=== PATIENT | female | born 2000 | race Two or more races ===

== ENCOUNTER 2024-12-17 13:18 | Emergency (ER) | payer MEDICAID, SELFPAY ==
[2024-12-17 13:19] VITALS: BMI 33.2
[2024-12-17 13:28] VITALS: BP 120/81; PULSE 87; RESP 16; TEMP 36.8; O2SAT 97
--- NOTE | 2024-12-17 13:44 | EDNOTE_ITS ---
ED Skin Abcess FB-RME/HPI General Chief complaint: Skin/Abscess/Foreign Body Stated complaint: ABSCESS TO LOWER ABDOMEN Time Seen by Provider: 12/17/24 13:36 Arrival date/time: 12/17/24 13:18 RME / HPI RME / HPI narrative: 24 year old female presents to the ED with a complaint of a spider bite to her right lower abdomen. It is red and painful. It has been presents for a few days and getting worse. She denies fever or chills, nausea or vomiting. Related Data Home Medications ?Medication ?Instructions ?Recorded ?Confirmed levothyroxine 137 mcg tablet 137 mcg PO QDAY #0 tabs 0 09/18/13 12/04/18 Previous Rx's ?Medication ?Instructions ?Recorded ondansetron 4 mg disintegrating 4 mg PO Q8H PRN nausea and 12/04/18 tablet vomiting #14 tabs clindamycin HCl 300 mg capsule 300 mg PO Q6H abscess w ith 12/17/24 (Cleocin HCl) Cellulitis #40 caps meloxicam 15 mg tablet 15 mg PO QDAY #10 tabs 12/17 Allergies Allergy/AdvReac Type Severity Reaction Status Date / Time No Known Allergies Allergy Verified 12/17/24 13:21 Past Medical History Past Medical History CARDIAC: Negative Congestive Heart Failure RESPIRATORY: Negative Chronic Obstructive Pulmonary Disease (COPD) GENITOURINARY: Negative Renal Disease ENDOCRINE: Negative Diabetes Mellitus Type 1 or Diabetes Mellitus Type 2 Social History SMOKING STATUS: Current some day smoker ED Exam Narrative Physical exam: Alert and oriented 24 year old female, mild acute pain distress. Small area of erythema, warmth, and tenderness to right lower abdomen with induration and without fluctuance. Course Course Course Narrative: 24 year old female presents to the ED with a complaint of a spider bite to her right lower abdomen. It is red and painful. It has been presents for a few days and getting worse. She denies fever or chills, nausea or vomiting. Alert and oriented 24 year old female, mild acute pain distress. Small area of erythema, warmth, and tenderness to right lower abdomen with induration and without fluctuance. Patient was given Toradol 30 mg IM. She will be discharged home with clindamycin and meloxicam. The abscess is not ready for incision and drainage at this time due to no fluctuance. She was advised to return to the emergency department for any new or worsening symptoms. Quality Measures none Orders Category Date Time Status Clindamycin [Cleocin] Med 12/17/24 13:53 Discontinued 600 mg PO X1 ONE Ketorolac Inj [Toradol Inj] Med 12/17/24 13:53 Discontinued 30 mg IM X1 ONE Vital Signs Vital signs: Vital Signs Temperature 98.3 F 12/17/24 13:28 Pulse Rate 87 12/17/24 13:28 Respiratory Rate 16 12/17/24 13:28 Blood Pressure 120/81 12/17/24 13:28 Pulse Oximetry (%) 97 12/17/24 13:28 Oxygen Delivery Method Room Air 12/17/24 13:28 Skin / Abscess / Foreign Body MDM Narrative MDM Narrative:: 24 year old female presents to the ED with a complaint of a spider bite to her right lower abdomen. It is red and painful. It has been presents for a few days and getting worse. She denies fever or chills, nausea or vomiting. Alert and oriented 24 year old female, mild acute pain distress. Small area of erythema, warmth, and tenderness to right lower abdomen with induration and without fluctuance. Patient was given Toradol 30 mg IM. She will be discharged home with clindamycin and meloxicam. The abscess is not ready for incision and drainage at this time due to no fluctuance. She was advised to use warm, moist compresses several times daily. She was advised to return to the emergency department for any new or worsening symptoms. Patient data External records reviewed:: None Clinical information provided by:: patient Social determinants that could affect healthcare access:: none Patient has the following chronic illnesses:: None How is presenting disease/condition affected by chronic disease/condition?: no chronic disease Evaluation data The following diagnostics were reviewed and interpreted by me:: other (specify) (N/A) Lab and/or radiology exams considered but not ordered:: N/A Interpretation Summary: N/A Medications / Prescriptions Medications or Prescriptions considered but not ordered:: N/A Medication administrations:: Medication Administration History Discontinued Medications Clindamycin HCl (Clindamycin 150 Mg Capsule) 600 mg PO X1 ONE Stop: 12/17/24 13:54 Ketorolac Tromethamine (Ketorolac Inj 60 Mg/2 Ml Vial) 30 mg IM X1 ONE Stop: 12/17/24 13:54 Toradol 30 mg IM Consultations Consultation(s) initiated? (list below): No Diagnosis Skin/Abscess Differential Diagnosis: abscess of skin or subcutaneous tissue, cellulitis and insect bites Most likely diagnosis given after review of the tests above:: Abscess of skin with cellulitis. Admission Indicated Admission indicated?: not indicated Admission Request Was there a request for admission?: No Disposition Plan Disposition Plan: Discharge Discharge Attestation Discharge Attestation: The patient and all family members were given an opportunity to ask questions and understood the discharge instructions. Discharge instructions specifically effects, indications for sooner follow up or return to the emergency department, and the expected course of current diagnosis. Patient condition: Stable Discharge Plan Plan Patient Disposition: HOME (Self Care) Discharge Disposition comment: Stable Prescriptions/Referrals Prescriptions/Med Rec: New clindamycin HCl [Cleocin HCl] 300 mg capsule 300 mg PO Q6H Qty: 40 0RF meloxicam 15 mg tablet 15 mg PO QDAY Qty: 10 0RF No Action levothyroxine 137 mcg Tablet 137 mcg PO QDAY Qty: 0 ondansetron 4 mg tablet,disintegrating 4 mg PO Q8H PRN (Reason: nausea and vomiting) Qty: 14 0RF Problem List Clinical Impression: Abscess of skin or subcutaneous tissue, Cellulitis Patient/Caregiver Discharge Instructions Education Materials: ED Abscess Antibiotic ..., ED Cellulitis Additional Instructions: Take the antibiotics as prescribed and complete the course even though you may be feeling better. Apply warm, moist compresses to the area several times daily. Follow-up with your primary care physician in 24 to 48 hours. Return to the ED for any new or worsening symptoms. Print Language: Belarusian Stand Alone Forms: Nanette Award Info., Patient Portal Info Letter PA/BRITTANI Supervising Physician ESAU/BRITTANI Supervising Physician: Dr Zapata
[2024-12-17] MEDS: CLINDAMYCIN 150 MG CAPSULE 600 MG PO (14:17)
[2024-12-17] MEDS: KETOROLAC INJ 60 MG/2 ML VIAL 30 MG IM (14:17)
== END 2024-12-17 14:31 | disposition home or self-care (01) ==
PROVIDERS: Emergency Provider Emergency Medicine
DX: L02.211 Cutaneous abscess of abdominal wall (principal); L03.311 Cellulitis of abdominal wall
CPT/HCPCS: 96372; 99283; J1885; A9270

== ENCOUNTER 2025-03-05 06:36 | Emergency (ER) | payer MEDICAID, SELFPAY ==
[2025-03-05 06:37] VITALS: BP 121/74; PULSE 104; RESP 18; TEMP 37.1; O2SAT 96; BMI 32.2
[2025-03-05] MEDS: CLINDAMYCIN PHOS INJ 150 MG/ML VIAL 6 ML 600 MG IM (06:58)
--- NOTE | 2025-03-05 06:58 | EDNOTE_ITS ---
<Statement entered by Johanna Cavazos MD - 03/19/25 06:29> As co-signing physician, I was present and available for consult prn. I concur with the plan and care as documented by the midlevel provider. ED Skin Abcess FB-RME/HPI General Chief complaint: Skin/Abscess/Foreign Body Stated complaint: SPIDER BITE L INNER THIGH Time Seen by Provider: 03/05/25 06:38 Source: patient Arrival date/time: 03/05/25 06:36 24-year-old female with no known medical history presents to the emergency room with a chief complaint of a possible spider bite to the left inner thigh x 2 days Mode of arrival: ambulatory Limitations: no limitations Related Data Home Medications ?Medication ?Instructions ?Recorded ?Confirmed levothyroxine 137 mcg tablet 137 mcg PO QDAY #0 tabs 0 09/18/13 12/04/18 Previous Rx's ?Medication ?Instructions ?Recorded ondansetron 4 mg disintegrating 4 mg PO Q8H PRN nausea and 12/04/18 tablet vomiting #14 tabs clindamycin HCl 300 mg capsule 300 mg PO Q6H abscess w ith 12/17/24 (Cleocin HCl) Cellulitis #40 caps meloxicam 15 mg tablet 15 mg PO QDAY #10 tabs 12/17 amoxicillin 875 mg-potassium 1 tab PO BID 7 days #14 t abs 03/05/25 clavulanate 125 mg tablet Allergies Allergy/AdvReac Type Severity Reaction Status Date / Time No Known Allergies Allergy Verified 03/05/25 06:42 Review of Systems Review of Systems Systems Reviewed: All systems reviewed, normal except as documented Constitutional Constitutional: Reports system reviewed and no additional complaints, except as documented, Denies fatigue, Denies fever(s), Denies headache(s) and Denies weakness Eyes Eyes: Reports system reviewed and no additional complaints, except as documented, Denies blurry vision and Denies change in vision ENT Ears, Nose, Mouth, and Throat: Reports system reviewed and no additional complaints, except as documented, Denies otalgia, Denies headache(s), Denies nasal congestion, Denies throat swelling and Denies vertigo Cardiovascular Cardiovascular: Reports system reviewed and no additional complaints, except as documented, Denies chest pain, Denies dyspnea and Denies dyspnea on exertion Respiratory Respiratory: Reports system reviewed and no additional complaints, except as documented, Denies chest congestion, Denies cough, Denies dyspnea, Denies dyspnea on exertion and Denies wheezing Gastrointestinal Gastrointestinal: Reports system reviewed and no additional complaints, except as documented, Denies abdominal pain, Denies cramping, Denies nausea and Denies vomiting Genitourinary Genitourinary: Reports system reviewed and no additional complaints, except as documented Musculoskeletal Musculoskeletal: Reports system reviewed and no additional complaints, except as documented and Denies back pain Integumentary/Breasts Skin/Breast: Reports system reviewed and no additional complaints, except as documented, Reports erythema and Reports skin swelling Neurologic Neurologic: Reports system reviewed and no additional complaints, except as documented, Denies confusion, Denies headache(s), Denies lack of coordination, Denies vertigo and Denies weakness Psychiatric Psychiatric: Reports system reviewed and no additional complaints, except as documented, Denies anxiety, Denies confusion, Denies depression, Denies paranoia, Denies suicidal ideation and Denies tactile hallucinations Endocrine Endocrine: Reports system reviewed and no additional complaints, except as documented and Denies fatigue Hematologic/Lymphatic Hematologic/Lymphatic: Reports system reviewed and no additional complaints, except as documented and Denies lymphadenopathy Allergic/Immunologic Allergic/Immunologic: Reports system reviewed and no additional complaints, except as documented, Denies throat swelling, Denies urticaria and Denies wheezing Past Medical History Past Medical History CARDIAC: Negative Congestive Heart Failure RESPIRATORY: Negative Chronic Obstructive Pulmonary Disease (COPD) GENITOURINARY: Negative Renal Disease ENDOCRINE: Negative Diabetes Mellitus Type 1 or Diabetes Mellitus Type 2 Social History SMOKING STATUS: Never smoker ED Exam General Limitations: Present no limitations General appearance: Present alert and in no apparent distress Head Head exam: Present atraumatic Eye Eye exam: Present normal appearance, PERRL and EOMI ENT ENT exam: Present normal exam, normal oropharynx and mucous membranes moist Neck Neck exam: Present normal inspection, full ROM and trachea midline Chest Chest inspection: Present normal inspection and symmetric chest wall rise Respiratory Respiratory exam: Present normal lung sounds bilaterally Cardiovascular Cardiovascular exam: Present regular rate, normal rhythm and normal heart sounds Abdominal Exam Abdominal exam: Present soft and normal bowel sounds Extremities Exam Extremities exam: Present normal inspection and full ROM Back Exam Back exam: Present normal inspection and full ROM Neurological Exam Neurological exam: Present alert, oriented X3 and CN II-XII intact Psychiatric Psychiatric exam: Present normal affect and normal mood Skin Skin exam: Present warm, dry, intact and normal color Expanded Skin Exam Type of lesion: Present bite/sting Distribution: Present LLE Description: Present tenderness, erythematous and swelling Body image: 2 1. Erythema swelling and tenderness to the left inner thigh. Course Quality Measures none Orders Category Date Time Status Clindamycin Vial [Cleocin vial] Med 03/05/25 06:50 Discontinued 600 mg IM X1 ONE Vital Signs Vital signs: Vital Signs Temperature 98.7 F 03/05/25 06:37 Pulse Rate 104 H 03/05/25 06:37 Respiratory Rate 18 03/05/25 06:37 Blood Pressure 121/74 03/05/25 06:37 Pulse Oximetry (%) 96 03/05/25 06:37 Oxygen Delivery Method Room Air 03/05/25 06:37 O2 saturation 96% within normal limits Skin / Abscess / Foreign Body MDM Narrative MDM Narrative:: 24-year-old female with no known medical history presents to the emergency room with a chief complaint of a possible spider bite to the left inner thigh x 2 days Patient is hemodynamically stable and in no apparent distress. Patient is nontoxic-appearing and is afebrile Physical examination shows left inner thigh erythema swelling and tenderness with palpation. The cellulitis to her inner thigh is very rough and does not appear ready to be I&D. I spoke to the patient and she would like to trial antibiotics before cutting it. The patient was given strict return precautions to return to the emergency room for any evidence of worsening signs or symptoms that showed a clindamycin was given to her at bedside and the patient was discharged with Augmentin the site was marked with a surgical around erythema Patient was discharged and educated to follow-up with primary care provider in the next 24 to 48 hours and return to the emergency room for any evidence of worsening signs or symptoms Patient data External records reviewed:: [facility] previous records Clinical information provided by:: patient Social determinants that could affect healthcare access:: none Patient has the following chronic illnesses:: No chronic illness How is presenting disease/condition affected by chronic disease/condition?: no chronic disease Evaluation data The following diagnostics were reviewed and interpreted by me:: lab results and radiology exam(s) Lab and/or radiology exams considered but not ordered:: Labs and radiology exams considered and ordered Interpretation Summary: N/A Medications / Prescriptions Medications or Prescriptions considered but not ordered:: Medication given Medication administrations:: Medication Administration History Discontinued Medications Clindamycin Phosphate (Clindamycin Phos Inj 150 Mg/Ml Vial 6 Ml) 600 mg IM X1 ONE Stop: 03/05/25 06:51 Medication given Consultations Consultation(s) initiated? (list below): No Diagnosis Skin/Abscess Differential Diagnosis: abscess of skin or subcutaneous tissue, cellulitis, insect bites and contact dermatitis Most likely diagnosis given after review of the tests above:: Cellulitis Admission Indicated Admission indicated?: not indicated Admission Request Was there a request for admission?: No Disposition Plan Disposition Plan: Discharge Discharge Attestation Discharge Attestation: The patient and all family members were given an opportunity to ask questions and understood the discharge instructions. Discharge instructions specifically effects, indications for sooner follow up or return to the emergency department, and the expected course of current diagnosis. Patient condition: Stable Discharge Plan Plan Patient Disposition: HOME (Self Care) Discharge Disposition comment: Stable Prescriptions/Referrals Prescriptions/Med Rec: New amoxicillin-pot clavulanate 875-125 mg tablet 1 tab PO BID 7 Days Qty: 14 0RF No Action levothyroxine 137 mcg Tablet 137 mcg PO QDAY Qty: 0 ondansetron 4 mg tablet,disintegrating 4 mg PO Q8H PRN (Reason: nausea and vomiting) Qty: 14 0RF clindamycin HCl [Cleocin HCl] 300 mg capsule 300 mg PO Q6H Qty: 40 0RF meloxicam 15 mg tablet 15 mg PO QDAY Qty: 10 0RF Problem List Clinical Impression: Cellulitis, Spider bite Patient/Caregiver Discharge Instructions Education Materials: ED Cellulitis Additional Instructions: Please follow-up with your primary care provider in the next 24 to 48 hours Antibiotics are sent to your pharmacy please pick them up and take them as indicated Please wash the bite area gently with soap and water. Keep the area clean and covered. Avoid scratching or picking at the bite. Watch for signs of infection and seek care if worsening signs or symptoms begin to develop. Please return to the emergency room if the redness or swelling is getting worse, if there is fever chills or feeling very sick, if there is pus or drainage from the bite, red streaks up your oral area spreads quickly. Print Language: Yi Stand Alone Forms: Nanette Award Info., Patient Portal Info Letter PA/[employer] Supervising Physician ESAU/BRITTANI Supervising Physician: Dr. CAVAZOS
--- NOTE | 2025-03-05 07:20 | PC.NURSE ---
SAW PT WALK OUT W/ FAMILY. LOOKED LIKE THEY WERE LEAVING.
--- NOTE | 2025-03-05 07:30 | PC.NURSE ---
REGISTRATION CALLED PT BUT NO ANSWER.
--- NOTE | 2025-03-05 07:40 | PC.NURSE ---
CALLED PT IN LOBBY AND OUTSIDE; NO ANSWER SECOND CALL.
--- NOTE | 2025-03-05 07:50 | PC.NURSE ---
CALLED PT IN LOBBY AND OUTSIDE; NO ANSWER THIRD CALL.
== END 2025-03-05 08:02 | disposition left against medical advice (07) ==
LOC: SERX 08:08
PROVIDERS: Emergency Provider Emergency Medicine
DX: L03.116 Cellulitis of left lower limb (principal); T63.301A Toxic effect of unspecified spider venom, accidental (unintentional), initial encounter
CPT/HCPCS: 96372; 99283; J0736